=== PATIENT | female | born 1970 | race Caucasian/White ===

== ENCOUNTER 2020-11-21 13:43 | Emergency (ER) | payer OTHER, SELFPAY ==
--- NOTE | ~2020-11-21 | CT_ITS ---
EXAMINATION: CT ANGIOGRAM OF THE CHEST WITH AND WITHOUT CONTRAST (CT PULMONARY ANGIOGRAM FOR PE) CLINICAL INFORMATION: Reason for Exam R side cp hx PE COMPARISON: None TECHNIQUE: Prior to contrast administration, noncontrast localization images were obtained. Subsequently, multidetector volumetric imaging was performed from the thoracic inlet to below the diaphragms following the administration of 65 mL Omnipaque 350 intravenous contrast. No contrast reaction reported Sagittal, coronal, and MIP oblique sagittal reformatted images were obtained on the CT workstation, uploaded to PACS, and reviewed. This CT examination was performed using dose optimization techniques as appropriate, variously including the following: *Automated exposure control *Adjustment of mA and/or kV according to patient size (this includes techniques or standardized protocols for targeted exams where dose is matched to indication/reason for exam; i.e. extremities or head) *Use of iterative reconstruction technique Total exam dose-length product 404 mGy-cm FINDINGS: QUALITY OF STUDY/CONTRAST BOLUS: Satisfactory. PULMONARY ARTERIES: No central or segmental pulmonary emboli. THORACIC AORTA: No aneurysm or dissection. LUNG: There is a 3 mm calcified left upper lobe nodule axial image 159 series 6. PLEURA: No pleural effusion or pneumothorax. MEDIASTINUM: The heart is upper normal in size. There is a small pericardial effusion. There are small bilateral hilar lymph nodes. There is an enlarged subcarinal lymph node that measures 1.9 x 2.4 cm in AP and transverse dimension. There are smaller mediastinal lymph nodes in the paratracheal and precarinal regions. No evidence of septal bowing or right heart strain. The pulmonary arteries are enlarged. Main pulmonary artery 3.7 cm. There is a 1.5 x 2 cm nodule in the inferior left lobe of the thyroid gland. CHEST WALL/AXILLA: No enlarged axillary or internal mammary lymphadenopathy. No chest wall mass. OSSEOUS STRUCTURES: No acute or suspicious osseous abnormality. Degenerative changes of the spine. UPPER ABDOMEN: The liver is not completely imaged but appears prominent. No reflux of contrast into the hepatic veins to suggest elevated right heart pressures. CT/CT angio chest PE protocol IMPRESSION: No evidence of pulmonary embolism. Upper normal-size heart and small pericardial effusion. Enlarged pulmonary arteries questionable for pulmonary artery hypertension. Enlarged subcarinal mediastinal lymph node. 1.5 x 2 cm left thyroid nodule. Follow-up thyroid ultrasound recommended. VTE: negative
[2020-11-21 13:46] VITALS: BP 155/87; PULSE 89; RESP 16; TEMP 37.1; O2SAT 100; BMI 36.5
[2020-11-21 14:29] LABS: Glucose Urine UA NEG (NEG); Leukocyte Esterase Urine NEG (NEG); Nitrite Urine NEG (NEG); PH 5.5 (5.0-8.0); Specific Gravity - Urine >= 1.030 (1.005-1.025); Urine Blood 2+ (NEG); Urine Ketones NEG (NEG); Urine Protein NEG (NEG-TRACE)
[2020-11-21 14:30] LABS: Appearance Urine CLEAR; Color Urine YELLOW
[2020-11-21 14:39] LABS: Bacteria Urine TRACE /LPF; Squamous Epithelial Cell Urine 2+ /LPF; WBC Urine 0 /HPF (0-4)
--- NOTE | 2020-11-21 14:40 | ED.CHESTPAIN ---
HPI - Chest Pain General Chief Complaint: Abdominal Pain Stated Complaint: rib pain Time Seen by Provider: 11/21/20 14:40 Source: patient Mode of arrival: ambulatory Limitations: no limitations History of Present Illness HPI narrative: Pleasant 42-year-old female who reports history of pulmonary embolism about 28 years ago when she was and history of cholecystectomy otherwise no other significant past medical history not currently taking blood thinners about 3 days ago started to experience right-sided chest pain that seems to be more on the lateral aspect of the chest that is worsen with deep breaths and will cause her to ?take her breath away?. Pain is described as sharp and stabbing intermittent worsen with deep breath and certain positions. Alleviated by certain positions but can be intermittently triggered. Denies any associated abdominal pain or nausea vomiting diarrhea. No lower extremity swelling. No headache or dizziness. No recent sick contact or travel or person symptoms. MD complaint: chest pain Pertinent past history: other (PE) Onset (ago): day(s) (3 ) Timing of current episode: episodic Prior episodes: Yes Pain location: right chest Pain radiation: none Severity: moderate Quality: aching Relieving factors: rest and remaining still Exacerbating factors: inspiration and palpation Treatment prior to arrival: none Related Data Previous Rx's Medication Instructions Recorded lidocaine 1 patch TOPICAL Q24H PRN #10 ea 11/21/20 naproxen 500 mg PO BID PRN #14 tab 11/21/20 Allergies Allergy/AdvReac Type Severity Reaction Status Date / Time meperidine [From DEMEROL] Allergy Unknown NAUSEA, Verified 11/21/20 13:50 VOMITING Review of Systems Review of Systems: Constitutional: No Weight loss, No Fever, No Chills, No Night Sweats, No Fatigue, No Malaise ENT/Mouth: No Hearing loss, No Ear Pain, No Nasal Congestion, No Sinus Pain, No Hoarseness, No sore throat, No Rhinorrhea, No Swallowing Difficulty Eyes: No Eye Pain, No Swelling, No Redness, No Foreign Body, No Discharge, No Vision Changes Cardiovascular: as noted per HPI, No SOB, No Dyspnea on Exertion, No Orthopnea, No Edema, No Palpitations Respiratory: No Cough, No Sputum, No Wheezing, No Smoke Exposure, No Dyspnea Gastrointestinal: No Nausea, No Vomiting, No Diarrhea, No Constipation, No abdominal Pain, No Hematochezia, No Melena Genitourinary: no irregular bleeding, No Dysuria, No Urinary Frequency, No Hematuria, No Urinary Incontinence, No Urgency, No Flank Pain, No Urinary Flow Changes, No Hesitancy Musculoskeletal: No joint pain, No Myalgias, No Joint Swelling Skin: No Skin Lesions, No rash Neuro: No Weakness, No Numbness, No Paresthesias, No Loss of Consciousness, No Dizziness, No Headache Psych: No Social Issues Heme/Lymph: No Bruising, No Bleeding,No Lymphadenopathy Endocrine: No Polyuria, No Polydipsia, No Temperature Intolerance Yes all other systems are reviewed and are negative [facility] Past Medical History Medical History (Updated 11/21/20 @ 18:00 by Apolinar Alfredo NP) FHx: cholecystectomy History of blood clot to lungs during Social History Social History Advance Directives: Yes Advance Directives Information Provided: Yes Advance Directives on File: No Physical Exam Vital Signs: Vital Signs: Last Vital Signs Temp 97.7 F 11/21/20 17:02 Pulse 81 11/21/20 17:02 Resp 20 11/21/20 17:02 BP 164/88 H 11/21/20 17:02 Pulse Ox 98 11/21/20 17:02 Body Mass Index 36.5 Reviewed Const: General: cooperative and healthy appearing; No acute distress or intoxicated appearing Nutritional Appearance: average body habitus Orientation/consciousness: patient oriented x3 HENMT: Head: Yes normal to inspection Ears: hearing grossly normal bilaterally Eyes: General: appearance normal, both eyes and all related structures Visual Hoyt: normal visual hoyt by confrontation Neck: Neck: Yes normal visual inspection, No positive Brudzinski's sign, No positive Kernig's sign and No tender Thyroid: Thyroid normal Chest: Chest palpation & inspection: normal inspection of the chest and tenderness costochondral junction right mid-axillary line involving the 5th rib, involving the 6th rib and involving the 7th rib Resp: Effort & Inspection: normal respiratory effort Auscultation: clear to auscultation bilaterally Cardio: Jugular venous distension: no JVD Rate: regular rate Rhythm: regular rhythm Heart sounds: S1 normal heart sound present and S2 normal heart sound present GI: Inspection: Yes normal to inspection Palpation (GI): Soft to palpation Percussion: Yes normal to percussion Auscultation: normal bowel sounds : General: Yes no CVA tenderness Back/Spine/Pelvis: Back: no CVA tenderness Skin: General skin exam: no rashes or lesions noted Neuro: General: patient oriented x3 Extrem: General: Yes normal to inspection Course Course Course Narrative: Has been resting comfortably AP exam consistent with right-sided chest wall pain musculoskeletal in etiology and reproducible with palpation on exam. Workup overall reassuring known history of thyroid nodules has had ultrasounds in the past will follow-up regarding this. In the meantime will try short course of NSAID and topical lidocaine. Return, follow-up instructions provided. Stable for discharge. MDM - Chest Pain Differential Diagnosis Differential diagnosis: Likely atypical chest pain, costochondritis and chest pain; Unlikely fracture of rib, pneumothorax, stable angina, unstable angina pectoris, st elevation myocardial infarction and biliary colic Medical Records Data Attestation: I reviewed the patient's medical records. Lab Data Attestation: I reviewed the patient's lab results. Result diagrams: 11/21/20 14:54 11/21/20 14:54 Labs: Lab Results 11/21/20 11/21/20 11/21/20 Range/Units 14:14 14:54 14:54 WBC 11.4 H (4.8-10.8) X10*3/uL RBC 4.80 (4.20-5.50) X10*6/uL Hgb 12.3 (12.0-16.0) g/dl Hct 38.8 (37-47) % MCV 80.8 (80-98) fL MCH 25.6 L (27.0-33.0) pg MCHC 31.7 (31.0-35.0) g/dl RDW 15.1 (11.0-16.0) % Plt Count 405 H (160-400) X10*3/uL MPV 9.1 L (9.4-12.3) fL Immature Gran % (Auto) 0.3 (0.0-0.4) % Neut % (Auto) 71.0 (45-73) % Lymph % (Auto) 19.1 L (20-40) % Trigg % (Auto) 7.4 (2-11) % Eos % (Auto) 1.7 (0-4) % Baso % (Auto) 0.5 (0-2) % Lymph # (Auto) 2.2 (1.2-4.9) X10*3/uL Trigg # (Auto) 0.9 (0.1-1.2) X10*3/uL Eos # (Auto) 0.2 (0.0-0.4) X10*3/uL Baso # (Auto) 0.1 (0.0-0.2) X10*3/uL Abs Immat Gran (auto) 0.04 H (0.00-0.03) X10*3/uL Absolute Neuts (auto) 8.1 (2.0-8.3) X10*3/uL Absolute Nucleated RBC 0.000 (0.0-0.012) X10*3/uL Nucleated RBC % (auto) 0.0 (0.0-0.2) /100WBC PT 12.2 (10.8-13.0) SEC INR 1.0 (0.9-1.1) APTT 37.9 (24.1-38.0) SEC Sodium (135-145) mmol/L Potassium (3.3-5.1) mmol/L Chloride (96-108) mmol/L Carbon Dioxide (22-29) mmol/L Anion Gap (12-20) BUN (9-16) mg/dL Creatinine (0.5-1.4) mg/dL Estim Creat Clear Calc Estimated GFR Random Glucose (60-115) mg/dL Calcium (8.4-10.2) mg/dL Total Bilirubin (0.0-1.0) mg/dL AST (5-31) U/L ALT (0-31) U/L Alkaline Phosphatase (39-117) U/L Troponin I High Sens (<3.5-17.0) ng/L Total Protein (6.5-8.0) g/dL Albumin (3.5-5.0) g/dL Urine Color YELLOW Urine Appearance CLEAR Urine pH 5.5 (5.0-8.0) Ur Specific Williams >= 1.030 H (1.005-1.025) Urine Protein NEG (NEG-TRACE) MG/DL Urine Glucose (UA) NEG (NEG) MG/DL Urine Ketones NEG (NEG) MG/DL Urine Blood 2+ H (NEG) Urine Nitrite NEG (NEG) Ur Leukocyte Esterase NEG (NEG) Urine RBC 5-9 H (0) /HPF Urine WBC 0 (0-4) /HPF Ur Squamous Epith Cells 2+ /LPF Urine Bacteria TRACE /LPF Coronavirus (PCR) (Negative) Influenza Type A (PCR) (Negative) Influenza Type B (PCR) (Negative) RSV RNA Qual (PCR) (Negative) 11/21/20 11/21/20 11/21/20 Range/Units 14:54 14:54 14:54 WBC (4.8-10.8) X10*3/uL RBC (4.20-5.50) X10*6/uL Hgb (12.0-16.0) g/dl Hct (37-47) % MCV (80-98) fL MCH (27.0-33.0) pg MCHC (31.0-35.0) g/dl RDW (11.0-16.0) % Plt Count (160-400) X10*3/uL MPV (9.4-12.3) fL Immature Gran % (Auto) (0.0-0.4) % Neut % (Auto) (45-73) % Lymph % (Auto) (20-40) % Trigg % (Auto) (2-11) % Eos % (Auto) (0-4) % Baso % (Auto) (0-2) % Lymph # (Auto) (1.2-4.9) X10*3/uL Trigg # (Auto) (0.1-1.2) X10*3/uL Eos # (Auto) (0.0-0.4) X10*3/uL Baso # (Auto) (0.0-0.2) X10*3/uL Abs Immat Gran (auto) (0.00-0.03) X10*3/uL Absolute Neuts (auto) (2.0-8.3) X10*3/uL Absolute Nucleated RBC (0.0-0.012) X10*3/uL Nucleated RBC % (auto) (0.0-0.2) /100WBC PT (10.8-13.0) SEC INR (0.9-1.1) APTT (24.1-38.0) SEC Sodium 139 (135-145) mmol/L Potassium 4.4 (3.3-5.1) mmol/L Chloride 106 (96-108) mmol/L Carbon Dioxide 25 (22-29) mmol/L Anion Gap 12 (12-20) BUN 18 H (9-16) mg/dL Creatinine 0.72 (0.5-1.4) mg/dL Estim Creat Clear Calc 123.5 Estimated GFR > 60 Random Glucose 87 (60-115) mg/dL Calcium 9.2 (8.4-10.2) mg/dL Total Bilirubin 0.3 (0.0-1.0) mg/dL AST 16 (5-31) U/L ALT 19 (0-31) U/L Alkaline Phosphatase 95 (39-117) U/L Troponin I High Sens < 3.5 (<3.5-17.0) ng/L Total Protein 7.4 (6.5-8.0) g/dL Albumin 4.1 (3.5-5.0) g/dL Urine Color Urine Appearance Urine pH (5.0-8.0) Ur Specific Williams (1.005-1.025) Urine Protein (NEG-TRACE) MG/DL Urine Glucose (UA) (NEG) MG/DL Urine Ketones (NEG) MG/DL Urine Blood (NEG) Urine Nitrite (NEG) Ur Leukocyte Esterase (NEG) Urine RBC (0) /HPF Urine WBC (0-4) /HPF Ur Squamous Epith Cells /LPF Urine Bacteria /LPF Coronavirus (PCR) NEGATIVE (Negative) Influenza Type A (PCR) NEGATIVE (Negative) Influenza Type B (PCR) NEGATIVE (Negative) RSV RNA Qual (PCR) NEGATIVE (Negative) Imaging Data Chest CTA PE: Radiologist's impression: Kimberly Edmond 50 F [address] Scan ReportSigned Patient: Kimberly EdmondMR#: [id number]: [id number]:[id number]/Sex: 50 / FADM Date: 11/21/20Loc: Zenia Cisneros: Ordering Physician: Apolinar Alfredo NP Date of Service: 11/21/20 Procedure(s): CT angio chest PE protocol Accession Number(s): [id number] cc: Apolinar Alfredo MA[employer]~ EXAMINATION: CT ANGIOGRAM OF THE CHEST WITH AND WITHOUT CONTRAST (CT PULMONARY ANGIOGRAM FOR PE) CLINICAL INFORMATION: Reason for Exam R side cp hx PE COMPARISON: None TECHNIQUE: Prior to contrast administration, noncontrast localization images were obtained. Subsequently, multidetector volumetric imaging was performed from the thoracic inlet to below the diaphragms following the administration of 65 mL Omnipaque 350 intravenous contrast. No contrast reaction reported Sagittal, coronal, and MIP oblique sagittal reformatted images were obtained on the CT workstation, uploaded to PACS, and reviewed. This CT examination was performed using dose optimization techniques as appropriate, variously including the following: *Automated exposure control *Adjustment of mA and/or kV according to patient size (this includes techniques or standardized protocols for targeted exams where dose is matched to indication/reason for exam; i.e. extremities or head) *Use of iterative reconstruction technique Total exam dose-length product 404 mGy-cm FINDINGS: QUALITY OF STUDY/CONTRAST BOLUS: Satisfactory. PULMONARY ARTERIES: No central or segmental pulmonary emboli. THORACIC AORTA: No aneurysm or dissection. LUNG: There is a 3 mm calcified left upper lobe nodule axial image 159 series 6. PLEURA: No pleural effusion or pneumothorax. MEDIASTINUM: The heart is upper normal in size. There is a small pericardial effusion. There are small bilateral hilar lymph nodes. There is an enlarged subcarinal lymph node that measures 1.9 x 2.4 cm in AP and transverse dimension. There are smaller mediastinal lymph nodes in the paratracheal and precarinal regions. No evidence of septal bowing or right heart strain. The pulmonary arteries are enlarged. Main pulmonary artery 3.7 cm. There is a 1.5 x 2 cm nodule in the inferior left lobe of the thyroid gland. CHEST WALL/AXILLA: No enlarged axillary or internal mammary lymphadenopathy. No chest wall mass. OSSEOUS STRUCTURES: No acute or suspicious osseous abnormality. Degenerative changes of the spine. UPPER ABDOMEN: The liver is not completely imaged but appears prominent. No reflux of contrast into the hepatic veins to suggest elevated right heart pressures. CT/CT angio chest PE protocol IMPRESSION: No evidence of pulmonary embolism. Upper normal-size heart and small pericardial effusion. Enlarged pulmonary arteries questionable for pulmonary artery hypertension. Enlarged subcarinal mediastinal lymph node. 1.5 x 2 cm left thyroid nodule. Follow-up thyroid ultrasound recommended. VTE: negative Dictated By:HELDER HOLLAND MDSigned By:<Electronically signed by HELDER HOLLAND MD in OV>11/21/20 1649 DD/ 1441TD/TT: Business Continuity Management Director: HERMES ECG Data ECG #1: Interpretation: Normal sinus rhythm Rate [address] segment changes Normal ECG No previous ECGs available Discharge Plan Discharge Clinical Impression: Acute costochondritis Patient Disposition: Home, Self-Care Instructions: Costochondritis (ED) Additional Instructions: Your blood work was overall stable The CT scan of your chest did not show any evidence of blood clots As I have reviewed with UA did show some thyroid nodules with your the know about please follow-up with this as planned The pain that you are having is consistent with muscle inflammation/muscle strain for this you can start taking anti-inflammatory medication and do warm compresses with gentle stretching and a topical lidocaine patch. Return if any concerns or worsening symptoms Thank you Prescriptions: New naproxen 500 mg tablet 500 mg PO BID PRN (Reason: pain) Qty: 14 RF: 0 lidocaine 4 % adhesive patch,medicated 1 patch topical Q24H PRN (Reason: pain) Qty: 10 RF: 0 Referrals: Hernán Bonilla Jr, MD [Primary Care Provider] - 1 week
--- NOTE | 2020-11-21 14:42 | ECG_ITS ---
Test Reason : ABDOMINAL PAIN Blood Pressure : / mmHG Vent. Rate : 076 BPM Atrial Rate : 076 BPM P-R Int : 152 ms QRS Dur : 086 ms QT Int : 374 ms P-R-T Axes : 060 020 072 degrees QTc Int : 420 ms Normal sinus rhythm Normal ECG No previous ECGs available Referred By: Apolinar Alfredo Electronically Signed By:KLAUS ESTRADA
[2020-11-21 14:46] VITALS: BP 149/81; PULSE 84; RESP 18; O2SAT 99
[2020-11-21] MEDS: 0.9 % Sodium Chloride 1,000 ML 999 ML IV (14:54)
[2020-11-21 14:58] LABS: MANUAL DIFF FLAG NO
[2020-11-21 15:00] LABS: Basophils Absolute Auto 0.1 X10*3/uL (0.0-0.2); Basophils Percent Auto 0.5 % (0-2); Eosinophils Absolute Auto 0.2 X10*3/uL (0.0-0.4); Eosinophils Percent Auto 1.7 % (0-4); Hematocrit 38.8 % (37-47); Hemoglobin 12.3 g/dl (12.0-16.0); Imm Gran Abs Auto 0.04 X10*3/uL (0.00-0.03); Imm Gran Pct Auto 0.3 % (0.0-0.4); Lymphocytes Absolute Auto 2.2 X10*3/uL (1.2-4.9); Lymphocytes Percent Auto 19.1 % (20-40); Mean Corpuscular HGB Conc 31.7 g/dl (31.0-35.0); Mean Corpuscular Hemoglobin 25.6 pg (27.0-33.0); Mean Corpuscular Volume 80.8 fL (80-98); Mean Platelet Volume 9.1 fL (9.4-12.3); Monocytes Absolute Auto 0.9 X10*3/uL (0.1-1.2); Monocytes Percent Auto 7.4 % (2-11); Neutrophils Absolute Auto 8.1 X10*3/uL (2.0-8.3); Platelet Count 405 X10*3/uL (160-400); Red Cell Distribution Width 15.1 % (11.0-16.0); White Blood Count 11.4 X10*3/uL (4.8-10.8)
[2020-11-21 15:05] LABS: Prothrombin Time 12.2 SEC (10.8-13.0)
[2020-11-21 15:08] LABS: Partial Thromboplastin Time 37.9 SEC (24.1-38.0)
[2020-11-21 15:41] LABS: Alanine Aminotransferase 19 U/L (0-31); Albumin Level 4.1 g/dL (3.5-5.0); Alkaline Phosphatase 95 U/L (39-117); Anion Gap 12 (12-20); Aspartate Amino Transferase 16 U/L (5-31); Bilirubin Total 0.3 mg/dL (0.0-1.0); Blood Urea Nitrogen 18 mg/dL (9-16); Calcium 9.2 mg/dL (8.4-10.2); Carbon Dioxide 25 mmol/L (22-29); Chloride 106 mmol/L (96-108); Creatinine Clr Calc Pharmacy 123.5; Estimated Glomerular Filt Rate > 60; Glucose Random 87 mg/dL (60-115); Influenza A PCR NEGATIVE (Negative); Influenza B PCR NEGATIVE (Negative); Potassium 4.4 mmol/L (3.3-5.1); Resp Syncy Virus RNA Qual PCR NEGATIVE (Negative); SARS COV2 PCR INHOUSE NEGATIVE (Negative); Sodium 139 mmol/L (135-145); Total Protein 7.4 g/dL (6.5-8.0); Troponin-I High Sensitivity < 3.5 ng/L (<3.5-17.0)
[2020-11-21] MEDS: iohexoL 350 MG/ML 75 ML INFUS..BTL IV (16:33)
[2020-11-21 17:02] VITALS: BP 164/88; PULSE 81; RESP 20; TEMP 36.5; O2SAT 98
== END 2020-11-21 18:10 | disposition home or self-care (01) ==
PROVIDERS: Nurse Practitioner Primary Care; Emergency Provider Internal Medicine; PCP Internal Medicine
DX: M94.0 Chondrocostal junction syndrome [Tietze] (principal); Z20.822 Contact with and (suspected) exposure to COVID-19; Z86.711 Personal history of pulmonary embolism; Z90.49 Acquired absence of other specified parts of digestive tract
CPT/HCPCS: 0241U; 36415; 71275; 80053; 81001; 84484; 85025; 85610; 85730; 93005; 96360; 99284; Q9967

== ENCOUNTER 2022-02-09 09:33 | Emergency (ER) | payer SELFPAY ==
[2022-02-09 09:51] VITALS: BP 145/80; PULSE 88; RESP 18; TEMP 36.9; O2SAT 97; BMI 38.0
--- NOTE | 2022-02-09 12:40 | ED_ITS ---
HPI - Eye Problem General Chief complaint: Eye Problems Stated complaint: Inflamed L eye Time Seen by Provider: 02/09/22 12:36 Source: patient Mode of arrival: ambulatory Limitations: no limitations History of Present Illness HPI Narrative: 50-year-old female presenting to the ED with complaints of left upper eyelid swelling/redness/itching/irritation that is now spreading to the left lower eyelid over the past week worse today. Denies any fevers, chills, dizziness, headaches, drainage from the eye, trauma to the eye, injury to the eye, vision changes, thoughts of foreign bodies, contact lens user or any other symptoms complaints or concerns at this time. Onset (ago): day(s) Onset description: gradual Duration: constant and progressively worsening Location: left eye Eye Symptoms: redness and itching Place: home Mechanism: none Severity: mild If Pain, Quality: aching Associated symptoms: none Treatments Prior to Arrival: irrigated eye Related Data Patient tetanus UTD: Yes Previous Rx's Medication Instructions Recorded lidocaine 4 % topical patch 1 patch TOPICAL Q24H PRN #10 ea 11/21/20 naproxen 500 mg tablet 500 mg PO BID PRN #14 tab 11/21/20 cephalexin 500 mg capsule 500 mg PO Q6H 10 Days #40 cap 02/09/22 erythromycin 5 mg/gram (0.5 %) eye 0.5 inch OPHTHALMIC (EYE) QID 7 02/09/22 ointment Days #3.5 g sulfamethoxazole 800 1 tab PO BID 10 Days #20 tab 02/09/22 mg-trimethoprim 160 mg tablet (Bactrim DS) Allergies Allergy/AdvReac Type Severity Reaction Status Date / Time meperidine [From DEMEROL] Allergy Unknown NAUSEA, Verified 11/21/20 13:50 VOMITING Review of Systems Review of Systems: Constitutional : No fevers, no chills, No changes in activity, No lethargy, No recent prior head injury, No agitation, No increased fussiness ENT/Mouth : No Ear Pain, No Nasal discharge/drainage Eyes: + left upper and lower eyelid swelling/redness/itching, No Vision changes/blurry/decreased vision, No Eye Pain, No Foreign Body, No Photophobia, no discharge, no drainage, no contact lens uses, no recent welding, no bleeding Cardiovascular : No Chest Pain, No SOB Respiratory : No Cough Gastrointestinal : No Nausea, No Vomiting, No abdominal Pain Genitourinary : No Dysuria, No Urinary Frequency, No Urinary Incontinence, No Urgency, No Flank Pain Musculoskeletal : No joint pain, No neck stiffness, No back pain/injury Skin : No lacerations Neuro : No unsteady gait, No Paresthesias, No Loss of Consciousness, No altered mental status, No dizziness, No Headache Denies past medical history of HIV, recent trauma, coagulopathy, recent spinal/ epidural procedure, new medication, URI symptoms, close contacts with similar symptoms, tick bite, or known CO2 exposure. Yes all other systems are reviewed and are negative [facility] Past Medical History Attestation statement: The following information was validated with the patient. Medical History FHx: cholecystectomy History of blood clot to lungs during Social History Social History Advance Directives: No Advance Directives Information Provided: No Physical Exam Vital Signs: Vital Signs: Last Vital Signs Temp 98.4 F 02/09/22 09:51 Pulse 88 02/09/22 09:51 Resp 18 02/09/22 09:51 BP 145/80 H 02/09/22 09:51 Pulse Ox 97 02/09/22 09:51 BMI result Body Mass Index 38.0 vital signs have been reviewed as normal and appeared to be correct. Blood pressure normal. Heart rate normal. Respiration rate normal. Temperature normal. Oxygen saturation normal. Appearance: Alert. Oriented X3. No acute distress. Head: Normal external exam. Normocephalic. Atraumatic. No Jani signs noted. No raccoon eyes noted Eyes: PERRLA. EOMI. Conjunctiva are normal. Cornea are normal. Funduscopic exam within normal limits. Sclera normal. Right eyelids within normal limits. Left upper and lower eyelid mildly erythematous/edematous consistent with periorbital cellulitis. Not consistent with orbital cellulitis. No foreign bodies are noted. No papilledema noted. Anterior chamber normal. No photophobia noted. ENT: EAC normal. TM's Normal. Pharynx normal. Uvula midline. Moist mucous membranes. Neck: Normal inspection. Neck supple. FROM. No adenopathy. Thyroid Normal. No meningeal signs. No neck mass noted. CVS: Normal heart rate and rhythm. Heart sound normal. No murmurs noted. Pulses normal throughout. Respiratory: No respiratory distress. Painless inspiration. Breath sounds normal. Back: Full range of motion noted. Skin: Skin warm and dry. Normal skin color. Normal skin turgor. No rashes/lesions/lacerations noted. Extremities: Extremities exhibit normal range of motion. Extremities nontender. Neuro: Oriented X 3. No motor deficit. No sensory deficit. Reflexes normal. Course Course Course Narrative: 51-year-old female presenting to the ED with complaints of left upper and lower eyelid swelling/redness/itching over the past few days that has been atraumatic she does not wear contacts she is up-to-date on tetanus denies any other symptoms complaints or concerns at this time. On exam she appears to have periorbital cellulitis not consistent with orbital cellulitis that she has normal extraocular movements and she does not have pain with extraocular movements. Therefore at this time will DC home with antibiotics and referral to the director of golf Dr. Camarena and instructions return if any new or worsening symptoms and to follow up with primary care provider. Patient understands agrees with this plan. [facility] - Eye Problem Medical Records Attestation: I reviewed the patient's medical records. Discharge Plan Discharge Clinical Impression: Periorbital cellulitis Patient Disposition: Home, Self-Care Instructions: Periorbital Cellulitis in Adults (ED) Prescriptions: New sulfamethoxazole-trimethoprim [Bactrim DS] 800-160 mg tablet 1 tab PO BID 10 Days Qty: 20 0RF cephalexin 500 mg capsule 500 mg PO Q6H 10 Days Qty: 40 0RF erythromycin 5 mg/gram (0.5 %) ointment 0.5 inch ophthalmic (eye) QID 7 Days Qty: 3.5 0RF No Action naproxen 500 mg tablet 500 mg PO BID PRN (Reason: pain) Qty: 14 0RF lidocaine 4 % adhesive patch,medicated 1 patch topical Q24H PRN (Reason: pain) Qty: 10 0RF Rx Instructions: may leave on for up to 12 hrs Referrals: Danny Camarena [Physician] - 3 days Stand Alone Forms: Work/School Release
== END 2022-02-09 13:05 | disposition home or self-care (01) ==
PROVIDERS: Emergency Provider Emergency Medicine Emergency Medical Services
DX: L03.213 Periorbital cellulitis (principal); Z79.899 Other long term (current) drug therapy
CPT/HCPCS: 99283

== ENCOUNTER 2023-01-03 23:43 | Emergency (ER) | payer SELFPAY ==
--- NOTE | ~2023-01-03 | CT_ITS ---
EXAMINATION: CT ABDOMEN AND PELVIS WITHOUT CONTRAST CLINICAL INFORMATION: Left flank pain with question of stone COMPARISON: CT abdomen pelvis 05/10/2019 TECHNIQUE: Multidetector volumetric imaging was performed from the superior aspect of the liver through the pubic symphysis. Sagittal and coronal reformatted images were obtained on the technologist's workstation. This CT examination was performed using dose optimization techniques as appropriate, variously including the following: *Automated exposure control *Adjustment of mA and/or kV according to patient size (this includes techniques or standardized protocols for targeted exams where dose is matched to indication/reason for exam; i.e. extremities or head) *Use of iterative reconstruction technique DLP: 761 mGy-cm FINDINGS: LUNG BASES: The visualized lung bases are unremarkable. Trace pericardial fluid is again noted. LIVER, GALLBLADDER, AND BILIARY TREE: The liver is enlarged measuring 20 cm in cephalocaudad dimension and demonstrates decreased attenuation consistent with hepatic steatosis. Some subcortical hepatic calcifications are seen. No worrisome solid focal hepatic lesion or biliary ductal dilatation is present. Status post cholecystectomy PANCREAS: Unremarkable. SPLEEN: Unremarkable. ADRENAL GLANDS: Unremarkable. KIDNEYS AND URETERS: The kidneys are normal in size, shape, and attenuation. No hydronephrosis, hydroureter, or calculi seen. No perinephric stranding. BLADDER: Unremarkable. GASTROINTESTINAL TRACT: The small and large bowel are unremarkable. The appendix is unremarkable. ABDOMINAL WALL: Small inguinal hernias are seen containing only fat. LYMPH NODES: No retroperitoneal lymphadenopathy VASCULAR: Unremarkable. PELVIC VISCERA: An anteverted uterus is present. A 4 cm cyst is present in the right adnexa that measures fat density, possibly a dermoid. In any event, it is unchanged from the prior 2019 study and consistent with a benign finding needing no additional imaging or follow-up. OSSEOUS STRUCTURES: There is a mild scoliosis convex to the right. Some minimal degenerative changes are present in the spine. CT/CT abdomen pelvis wo IV con IMPRESSION: 1. A cause for the patient's left flank pain has not been found. 2. Incidental note made of an enlarged fatty liver, cholecystectomy, benign right adnexal cyst, small inguinal hernias containing only fat and a trace pericardial effusion. Fleischner guidelines were followed.
[2023-01-03 23:58] VITALS: BP 128/72; BP 138/84; PULSE 76; PULSE 95; RESP 16; TEMP 36.7; O2SAT 98; BMI 37.0
--- NOTE | 2023-01-03 23:58 | ED_ITS ---
HPI - Abdominal Pain General Chief Complaint: Abdominal Pain Stated Complaint: L FLANK PAIN X1 HOUR PER EMS Time Seen by Provider: 01/03/23 23:58 Source: patient Mode of arrival: EMS Limitations: no limitations History of Present Illness HPI narrative: Patient history of remote kidney stone was doing okay this now prior to arrival noticed severe left flank pain sharp with cramping nature coming off and on unbearable no nausea vomiting no urinary complaints no blood in the urine no abdominal pain, patient pain is localized to left flank area only Related Data Previous Rx's Medication Instructions Recorded lidocaine 4 % topical patch 1 patch topical Q24H PRN pain #10 11/21/20 ea naproxen 500 mg tablet 500 mg PO BID PRN pain #14 tabs 11/21/20 cephalexin 500 mg capsule 500 mg PO Q6H 10 days #40 caps 02/09/22 erythromycin 5 mg/gram (0.5 %) eye 0.5 inch ophthalmic (eye) QID 02/09/22 ointment Blepharitis 7 days #3.5 grams sulfamethoxazole 800 1 tab PO BID 10 days #20 tabs 02/09/22 mg-trimethoprim 160 mg tablet (Bactrim DS) cyclobenzaprine 10 mg tablet 10 mg PO Q8H #20 tabs 01/04/23 tramadol 50 mg tablet 50 mg PO Q6H PRN pain #20 tabs 01/04/23 Allergies Allergy/AdvReac Type Severity Reaction Status Date / Time meperidine [From DEMEROL] Allergy Unknown NAUSEA, Verified 11/21/20 13:50 VOMITING Review of Systems Review of Systems Yes all other systems are reviewed and are negative PMFSH Past Medical History Medical History FHx: cholecystectomy History of blood clot to lungs during Social History Social History Advance Directives: No Advance Directives Information Provided: Yes Physical Exam ED Vital Signs: Vital Signs - 24 hr 01/03/23 23:58 01/04/23 01:44 Temperature 98.0 F 97.9 F Pulse Rate 95 58 Respiratory Rate 16 16 Blood Pressure 128/72 132/70 Pulse Oximetry 98 95 Oxygen Delivery Method Room Air Room Air BMI result Body Mass Index 37.0 Appearance: Alert. Oriented X3. In moderate distress Eyes: No pallor or icterus ENT: Pharynx normal. Oral Mucosa moist Neck: Normal inspection. Neck supple. CVS: Normal heart rate and rhythm. Pulses normal. Respiratory: No respiratory distress. Equal air entry bilateral, no wheezing/rales/rhonchi Abdomen: Soft and nontender. Bowel sounds are present, no mass palpable, L CVA tenderness ++ Skin: Skin warm and dry. Normal skin color. Normal skin turgor. Extremities: No lower extremity edema. No calf tenderness Neuro: Oriented X 3. No motor deficit. No sensory deficit.No cerebellar signs , cranial nerves II-XII intact Medical Decision Making Differential Diagnosis Patient with acute left flank pain CT scan negative for any kidney stone urine is negative labs are stable likely muscular strain Lab Data MDM Lab Attestation statement: I reviewed the patient's lab results. 01/04/23 00:06 01/04/23 00:06 Labs: Lab Results 01/04/23 01/04/23 01/04/23 Range/Units 00:06 00:06 01:44 WBC 8.6 (4.8-10.8) X10*3/uL RBC 4.93 (4.20-5.50) X10*6/uL Hgb 13.0 (12.0-16.0) g/dl Hct 39.0 (37.0-47.0) % MCV 79.1 L (80.0-98.0) fL MCH 26.4 L (27.0-33.0) pg MCHC 33.3 (31.0-35.0) g/dl RDW 14.1 (11.0-16.0) % Plt Count 345 (160-400) X10*3/uL MPV 9.0 L (9.4-12.3) fL Immature Gran % (Auto) 0.2 (0.0-0.4) % Neut % (Auto) 71.9 (45-73) % Lymph % (Auto) 18.6 L (20-40) % Davison % (Auto) 7.7 (2-11) % Eos % (Auto) 1.2 (0-4) % Baso % (Auto) 0.4 (0-2) % Lymph # (Auto) 1.6 (1.2-4.9) X10*3/uL Davison # (Auto) 0.7 (0.1-1.2) X10*3/uL Eos # (Auto) 0.1 (0.0-0.4) X10*3/uL Baso # (Auto) 0.0 (0.0-0.2) X10*3/uL Abs Immat Gran (auto) 0.02 (0.00-0.03) X10*3/uL Absolute Neuts (auto) 6.2 (2.0-8.3) x10*3/uL Absolute Nucleated RBC 0.000 (0.0-0.012) X10*3/uL Nucleated RBC % (auto) 0.0 (0.0-0.2) /100WBC Sodium 139 (135-145) mmol/L Potassium 3.6 (3.3-5.1) mmol/L Chloride 107 (96-108) mmol/L Carbon Dioxide 23 (22-29) mmol/L Anion Gap 13 (12-20) BUN 15 (9-16) mg/dL Creatinine 0.68 (0.5-1.4) mg/dL Estim Creat Clear Calc 129.0 Estimated GFR > 60 Random Glucose 133 H (60-115) mg/dL Calcium 9.2 (8.4-10.2) mg/dL Total Bilirubin 0.4 (0.0-1.0) mg/dL AST 15 (5-31) U/L ALT 25 (0-31) U/L Alkaline Phosphatase 93 (39-117) U/L Total Protein 6.7 (6.5-8.0) g/dL Albumin 4.0 (3.5-5.0) g/dL Lipase 34 (8-78) U/L Urine Color Yellow Urine Appearance Clear Urine pH 5.5 (5.0-9.0) Ur Specific [place] 1.020 (1.005-1.025) Urine Protein Negative (Neg-Trace) mg/dL Urine Glucose (UA) Negative (Negative) mg/dL Urine Ketones Negative (Negative) mg/dL Urine Blood Negative (Negative) Urine Nitrite Negative (Negative) Ur Leukocyte Esterase Trace H (Negative) Urine RBC 0-2 (0-2) /HPF Urine WBC 0-5 (0-5) /HPF Ur Squamous Epith Cells 0-2 (0-2) /HPF Urine Bacteria None Seen (None Seen) Hyaline Casts 0-2 (0-2) /LPF Medications Administered Discontinued Medications Generic Name Dose Route Start Last Admin Trade Name Felix PRN Reason Stop Dose Admin Sodium Chloride 1,000 mls @ 999 mls/hr 01/04/23 00:01 01/04/23 00:23 Ns IV 01/04/23 01:01 999 mls/hr .Q1H1M ONE Administration Ketorolac Tromethamine 30 mg 01/04/23 00:01 01/04/23 00:22 Ketorolac Tromethamine 30 Mg/Ml Vial IVPUSH 01/04/23 00:02 30 mg ONCE ONE Administration Morphine Sulfate 4 mg 01/04/23 00:01 01/04/23 00:23 Morphine Sulfate 4 Mg/Ml Cartridge IVPUSH 01/04/23 00:02 4 mg ONCE ONE Administration Protocol Ondansetron HCl 4 mg 01/04/23 00:01 01/04/23 00:23 Ondansetron Hcl 4 Mg/2 Ml Vial IVPUSH 01/04/23 00:02 4 mg ONCE ONE Administration Discharge Plan Discharge Clinical Impression: Low back strain Patient Disposition: Home, Self-Care Instructions: Low Back Strain (ED) Additional Instructions: Your back pain likely from muscular strain your workup is negative for kidney stones or UTI Take pain medication and muscle relaxants as prescribed and follow with PCP Prescriptions: New cyclobenzaprine 10 mg tablet 10 mg PO Q8H Qty: 20 0RF tramadol 50 mg tablet 50 mg PO Q6H PRN (Reason: pain) Qty: 20 0RF No Action naproxen 500 mg tablet 500 mg PO BID PRN (Reason: pain) Qty: 14 0RF lidocaine 4 % adhesive patch,medicated 1 patch topical Q24H PRN (Reason: pain) Qty: 10 0RF Rx Instructions: may leave on for up to 12 hrs sulfamethoxazole-trimethoprim [Bactrim DS] 800-160 mg tablet 1 tab PO BID 10 Days Qty: 20 0RF cephalexin 500 mg capsule 500 mg PO Q6H 10 Days Qty: 40 0RF erythromycin 5 mg/gram (0.5 %) ointment 0.5 inch ophthalmic (eye) QID 7 Days Qty: 3.5 0RF
[2023-01-04 00:10] LABS: Basophils Percent Auto 0.4 % (0-2); Eosinophils Absolute Auto 0.1 X10*3/uL (0.0-0.4); Eosinophils Percent Auto 1.2 % (0-4); Imm Gran Abs Auto 0.02 X10*3/uL (0.00-0.03); Imm Gran Pct Auto 0.2 % (0.0-0.4); Lymphocytes Absolute Auto 1.6 X10*3/uL (1.2-4.9); Lymphocytes Percent Auto 18.6 % (20-40); MANUAL DIFF FLAG NO; Mean Corpuscular HGB Conc 33.3 g/dl (31.0-35.0); Mean Corpuscular Hemoglobin 26.4 pg (27.0-33.0); Mean Corpuscular Volume 79.1 fL (80.0-98.0); Monocytes Absolute Auto 0.7 X10*3/uL (0.1-1.2); Monocytes Percent Auto 7.7 % (2-11); Neutrophils Absolute Auto 6.2 x10*3/uL (2.0-8.3); Neutrophils Percent Auto 71.9 % (45-73); Platelet Count 345 X10*3/uL (160-400); Red Blood Count 4.93 X10*6/uL (4.20-5.50); Red Cell Distribution Width 14.1 % (11.0-16.0); White Blood Count 8.6 X10*3/uL (4.8-10.8)
[2023-01-04] MEDS: Ketorolac Tromethamine 30 MG/ML VIAL IVPUSH (00:22)
[2023-01-04] MEDS: 0.9 % Sodium Chloride 1,000 ML 999 ML IV (00:23)
[2023-01-04] MEDS: Morphine Sulfate 4 MG/ML CARTRIDGE IVPUSH (00:23)
[2023-01-04] MEDS: ondansetron HCL 4 MG/2 ML VIAL IVPUSH (00:23)
[2023-01-04 00:28] LABS: Alanine Aminotransferase 25 U/L (0-31); Alkaline Phosphatase 93 U/L (39-117); Anion Gap 13 (12-20); Aspartate Amino Transferase 15 U/L (5-31); Bilirubin Total 0.4 mg/dL (0.0-1.0); Blood Urea Nitrogen 15 mg/dL (9-16); Calcium 9.2 mg/dL (8.4-10.2); Carbon Dioxide 23 mmol/L (22-29); Chloride 107 mmol/L (96-108); Estimated Glomerular Filt Rate > 60; Glucose Random 133 mg/dL (60-115); Lipase 34 U/L (8-78); Potassium 3.6 mmol/L (3.3-5.1); Sodium 139 mmol/L (135-145); Total Protein 6.7 g/dL (6.5-8.0)
--- NOTE | 2023-01-04 00:35 | PC.NURSE ---
this rn placed IV 20 g right AC. pt tolerated well. obtained blood work and sent down to lab. pt medicated according to nov.
[2023-01-04 01:44] VITALS: BP 132/70; PULSE 58; RESP 16; TEMP 36.6; O2SAT 95
[2023-01-04 01:53] LABS: Appearance Urine Clear; Color Urine Yellow; Glucose Urine UA Negative (Negative); Leukocyte Esterase Urine Trace (Negative); Nitrite Urine Negative (Negative); PH 5.5 (5.0-9.0); UMIC TRIGGER UACC YES; Urine Blood Negative (Negative); Urine Ketones Negative (Negative); Urine Protein Negative (Neg-Trace)
[2023-01-04 01:57] LABS: Bacteria Urine None Seen (None Seen); Hyaline Casts Urine 0-2 /LPF (0-2); RBC Urine 0-2 /HPF (0-2); Squamous Epithelial Cell Urine 0-2 /HPF (0-2); WBC Urine 0-5 /HPF (0-5)
[2023-01-04] MEDS: Cyclobenzaprine HCl 10 MG TABLET PO (02:42)
[2023-01-04 03:03] VITALS: BP 134/65; PULSE 72; RESP 18; TEMP 36.4; O2SAT 96
--- NOTE | 2023-01-04 03:19 | PC.NURSE ---
iv removed at time of discharge. pt reports 5/10 upon standing to transfer into wheelchair.VSS. this rn assisted pt into wheelchair. pt discharged to waiting room to await ride from daughter. pt provided with discharge packet. pt verbalized understanding of discharge plan
== END 2023-01-04 03:23 | disposition home or self-care (01) ==
PROVIDERS: Emergency Provider Internal Medicine
DX: S39.012A Strain of muscle, fascia and tendon of lower back, initial encounter (principal); X58.XXXA Exposure to other specified factors, initial encounter; Y93.9 Activity, unspecified; Y92.9 Unspecified place or not applicable; Y99.9 Unspecified external cause status
CPT/HCPCS: 36415; 74176; 80053; 81001; 83690; 85025; 96361; 96374; 96375; 99284; J1885; J2270; J2405